=== PATIENT | female | born 1955 | race Caucasian/White ===

== ENCOUNTER 2021-01-25 09:53 | Outpatient (CLI) | payer MEDICARE | END 2021-01-25 09:54 | disposition home or self-care (01) | LOC: CSHCT 09:53 | PROVIDERS: ATTEND Psychiatry & Neurology Neurology | DX: G25.2 Other specified forms of tremor (principal); K21.9 Gastro-esophageal reflux disease without esophagitis; I67.89 Other cerebrovascular disease; G31.9 Degenerative disease of nervous system, unspecified; I70.90 Unspecified atherosclerosis; K57.30 Diverticulosis of large intestine without perforation or abscess without bleeding; N94.9 Unspecified condition associated with female genital organs and menstrual cycle; M89.9 Disorder of bone, unspecified | CPT/HCPCS: 70553; 74176 ==

== ENCOUNTER 2022-09-06 07:48 | Outpatient (CLI) | payer MEDICARE | END 2022-09-06 07:49 | disposition home or self-care (01) | LOC: CSHCT 07:48 | PROVIDERS: ATTEND Family Medicine | DX: J01.10 Acute frontal sinusitis, unspecified (principal); J43.9 Emphysema, unspecified; R91.8 Other nonspecific abnormal finding of lung field | CPT/HCPCS: 71260; 82565 ==

== ENCOUNTER 2023-05-23 03:35 | Inpatient (IN) | payer MEDICARE ==
[2023-05-23] MEDS ORDERED: Ipratropium Bromide 2.5 ml Neb ONE (04:33)
[2023-05-23 04:58] LABS: SARS-CoV-2 NAA Rapid Test Not Detected (NotDetected)
[2023-05-23 04:58] LABS: #Basophils 0.1 10x3/uL (0.0-0.2); #Eosinphils 0.3 10x3/uL (0.0-0.5); #Monocytes 0.8 10x3/uL (0.0-1.1); #Neutrophils 6.6 10x3/uL (1.5-8.4); %Basophils 0.6 % (0.0-2.0); %Eosinophils 2.9 % (0.0-6.0); %Lymphocytes 13.3 % (18.0-47.0); %Monocytes 8.9 % (0.0-10.0); %Neutrophils 73.9 % (40.0-75.0); Hematocrit 43.8 % (34.9-44.5); Hemoglobin 14.3 g/dL (12.0-15.5); Mean Corpuscular HGB CONC 32.6 g/dL (32.0-36.0); Mean Corpuscular Hemoglobin 31.1 pg (27.0-33.0); Mean Corpuscular Volume 95.2 fl (81.6-98.3); Platelet Count 265 10x3/uL (150-450); RBC Distribution Width 12.3 % (11.5-14.5); White Blood Cell (WBC) Count 8.9 10x3/uL (3.5-10.5)
[2023-05-23 05:01] LABS: ALT (SGPT) 11 U/L (8-55); AST (SGOT) 12 U/L (5-34); Albumin 3.9 g/dL (3.4-4.8); Alkaline Phosphatase 61 U/L (40-110); Anion Gap 15 mmol/L (10-20); BUN (Urea Nitrogen) 14 mg/dL (9.8-20.1); Bilirubin, Total 0.7 mg/dL (0.2-1.2); Calc. Creatinine Clearance 0 mL/min (70-130); Calcium 9.1 mg/dL (7.8-10.44); Carbon Dioxide 27 mmol/L (23-31); Chloride 106 mmol/L (98-107); Estimated GFR 90; Globulin 2.5 g/dL (2.4-3.5); Glucose 102 mg/dL (80-115); Potassium 4.5 mmol/L (3.5-5.1); Protein, Total 6.4 g/dL (5.8-8.1); Sodium 143 mmol/L (136-145)
[2023-05-23 05:06] LABS: Troponin I Less than 0.010 ng/mL (< 0.028)
[2023-05-23] MEDS ORDERED: Morphine 2 MG/ML VIAL ONE (05:34)
[2023-05-23] MEDS ORDERED: Senokot S 8.6-50 MG TAB PO PRN (07:22)
[2023-05-23] MEDS ORDERED: Acetaminophen 325 MG TAB PO PRN (07:22)
[2023-05-23] MEDS ORDERED: Ondansetron PF 4 MG/2 ML Vial IVP PRN (07:22)
[2023-05-23] MEDS ORDERED: Guaifenesin DM 100-10/5 ML UDCUP PO PRN (07:22)
[2023-05-23] MEDS ORDERED: HYDROcodone/Acetaminophen 5/325 mg Tablet PO PRN (07:22)
[2023-05-23] MEDS ORDERED: Loperamide HCl 2 MG CAP PO PRN (07:22)
[2023-05-23] MEDS ORDERED: Sodium Chloride 0.9% 1,000 ML IV SCH (07:30)
[2023-05-23] MEDS ORDERED: traMADol HCl 50 MG TAB PO PRN (10:11)
[2023-05-23] MEDS ORDERED: Lorazepam 0.5 MG TAB PO PRN (11:39)
[2023-05-23] MEDS: SUMAtriptan Succinate 50 MG TAB PO PRN (15:29)
[2023-05-23] MEDS ORDERED: FLU VACC QS2023(65UP)/MF59C/PF 60 MCG/0.5 ML SYRINGE IM ONE (16:00)
[2023-05-24 06:20] LABS: #Basophils 0.1 10x3/uL (0.0-0.2); #Eosinphils 0.3 10x3/uL (0.0-0.5); #Monocytes 0.8 10x3/uL (0.0-1.1); #Neutrophils 6.3 10x3/uL (1.5-8.4); %Basophils 0.7 % (0.0-2.0); %Lymphocytes 12.6 % (18.0-47.0); %Neutrophils 74.3 % (40.0-75.0); Hematocrit 42.5 % (34.9-44.5); Hemoglobin 14.3 g/dL (12.0-15.5); Mean Corpuscular HGB CONC 33.6 g/dL (32.0-36.0); Mean Corpuscular Volume 95.1 fl (81.6-98.3); Platelet Count 254 10x3/uL (150-450); Red Blood Cell (RBC) Count 4.47 10x6/uL (3.90-5.03); White Blood Cell (WBC) Count 8.5 10x3/uL (3.5-10.5)
[2023-05-24 06:25] LABS: Anion Gap 11 mmol/L (10-20); BUN (Urea Nitrogen) 6 mg/dL (9.8-20.1); Calc. Creatinine Clearance 68 mL/min (70-130); Calcium 8.9 mg/dL (7.8-10.44); Carbon Dioxide 29 mmol/L (23-31); Chloride 103 mmol/L (98-107); Estimated GFR 97; Glucose 94 mg/dL (80-115); Potassium 3.8 mmol/L (3.5-5.1); Sodium 139 mmol/L (136-145)
[2023-05-24] MEDS: Loratadine 10 MG TAB PO SCH (08:47)
[2023-05-24] MEDS: SUMAtriptan Succinate 50 MG TAB PO PRN ×2 (08:47→20:59)
[2023-05-24] MEDS: Aspirin Chewable 81 MG TAB PO SCH (08:48)
[2023-05-24] MEDS: Cholecalciferol 1,000 UNITS (25 MCG) TAB PO SCH (08:48)
[2023-05-24] MEDS: Escitalopram Oxalate 10 mg Tablet PO SCH (08:48)
[2023-05-24] MEDS ORDERED: Fludrocortisone Acetate 0.1 MG TAB PO SCH (12:30)
[2023-05-24] MEDS ORDERED: Nicotine 14 MG PATCH TD SCH (17:00)
[2023-05-25] MEDS: Cholecalciferol 1,000 UNITS (25 MCG) TAB PO SCH (08:13)
[2023-05-25] MEDS: Loratadine 10 MG TAB PO SCH (08:14)
[2023-05-25] MEDS: Escitalopram Oxalate 10 mg Tablet PO SCH (08:14)
[2023-05-25] MEDS: Aspirin Chewable 81 MG TAB PO SCH (08:14)
[2023-05-25] MEDS ORDERED: Fludrocortisone Acetate 0.1 MG TAB PO SCH (09:00)
[2023-05-25 09:11] VITALS: BP 97/56; TEMP 97.4
[2023-05-25] MEDS: SUMAtriptan Succinate 50 MG TAB PO PRN (11:36)
== END 2023-05-25 11:49 | disposition home or self-care (01) | DRG 312 ==
LOC: CSHERS 03:35 → CSHTELE 07:22 → OBSVTOIN 05-24 12:29 → CSHTELE 05-24 15:43
PROVIDERS: ADMIT Hospitalist; ATTEND Hospitalist
DX: I95.1 Orthostatic hypotension (principal); E44.0 Moderate protein-calorie malnutrition; S22.32XA Fracture of one rib, left side, initial encounter for closed fracture; J96.11 Chronic respiratory failure with hypoxia; G40.909 Epilepsy, unspecified, not intractable, without status epilepticus; J43.9 Emphysema, unspecified; F32.A Depression, unspecified; M54.9 Dorsalgia, unspecified; G89.29 Other chronic pain; K21.9 Gastro-esophageal reflux disease without esophagitis; F17.210 Nicotine dependence, cigarettes, uncomplicated; R53.1 Weakness; G25.0 Essential tremor; Z79.82 Long term (current) use of aspirin; Z79.899 Other long term (current) drug therapy; Z90.49 Acquired absence of other specified parts of digestive tract; Z98.890 Other specified postprocedural states; Z71.6 Tobacco abuse counseling; Z90.710 Acquired absence of both cervix and uterus; Z90.89 Acquired absence of other organs; Z88.7 Allergy status to serum and vaccine; Z11.52 Encounter for screening for COVID-19; Z68.20 Body mass index [BMI] 20.0-20.9, adult; W18.39XA Other fall on same level, initial encounter
CPT/HCPCS: 70450; 70551; 71045; 80048; 80053; 83880; 84484; 85025; 87804; 93306; 93880; 94644; 94760; 94762; 96372; 96374; 96375; G0378; J1650; J2272; J2405; J7050; J7611; U0002